=== PATIENT | male | born 2000 | race Hispanic/Latino ===

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

== ENCOUNTER 2022-12-11 02:35 | Emergency (ER) | payer MEDICAID ==
[~2022-12-11] VITALS: Ht 180.3 cm; Wt 63.6 kg
[2022-12-11] MEDS ORDERED: 0.9%NACL 1000ML 1,000 ML IV ONE (03:00)
[2022-12-11] MEDS ORDERED: ONDANSETRON 4MG INJ IVP ONE (03:00)
[2022-12-11 03:14] VITALS: BP 126/60
[2022-12-11 03:21] LABS: BASOPHILS % (AUTO) 0.2 % (0.0-5.0); EOSINOPHILS % (AUTO) 0.9 % (0.0-8.0); HEMATOCRIT 48.4 % (42-54); LYMPHOCYTES % (AUTO) 17.2 % (21.0-51.0); MEAN CORPUSCULAR HEMOGLOBIN 28.4 pg (27.0-33.0); MEAN CORPUSCULAR HGB CONC 32.9 g/dL (32.0-36.0); MEAN CORPUSCULAR VOLUME 86.4 fL (80-100); NEUTROPHILS % (AUTO) 75.4 % (40.0-77.0); PLATELET COUNT (AUTO) 235 K/uL (130-400); RED CELL DISTRIBUTION WIDTH 13.1 % (11.0-15.5); WHITE BLOOD COUNT (AUTO) 12.3 K/uL (4.8-10.8)
[2022-12-11 03:32] LABS: CREATININE 0.9 mg/dL (0.5-1.5); POTASSIUM 3.3 mmol/L (3.5-5.1)
[2022-12-11 03:36] LABS: ALBUMIN 4.3 g/dL (3.5-5.0); TOTAL PROTEIN, SERUM 7.4 g/dL (6.0-8.3)
[2022-12-11] MEDS ORDERED: ONDA4TAB10 PO (03:48)
== END 2022-12-11 03:54 | disposition home or self-care (01) ==
LOC: EDH 02:35
DX: R11.10 Vomiting, unspecified (principal); Z98.890 Other specified postprocedural states
CPT/HCPCS: 99283; 96374; 80053; 83690; 85025; 36415; J2405

== ENCOUNTER 2025-03-26 05:58 | Emergency (ER) | payer BC, MEDICAID ==
[~2025-03-26] VITALS: Ht 175.3 cm; Wt 76.7 kg
[~2025-03-26 05:58] MED LIST: ONDA-243 PO
[2025-03-26 06:49] LABS: IMMATURE GRANULOCYTE ABSOLUTE 0.00 K/uL (0-1); NUCLEATED RED BLOOD CELLS 0.0 % (0.0-0.19); PLATELET COUNT (AUTO) 451 K/uL (130-400); RED BLOOD CELL COUNT(AUTO) 5.35 MIL/uL (4.50-6.20); RED CELL DISTRIBUTION WIDTH 14.1 % (11.0-15.5); WHITE BLOOD COUNT (AUTO) 6.8 K/uL (4.8-10.8)
[2025-03-26 06:58] LABS: CREATININE 0.9 mg/dL (0.5-1.3); GLOMERULAR FILTR. RATE CALC 122.0 mL/min (>90); GLUCOSE,RANDOM 139.0 mg/dL (70-105); SODIUM SERUM 135.0 mmol/L (136-145); UREA NITROGEN, BLOOD 13.0 mg/dL (7-18)
[2025-03-26 07:15] LABS: APPEARANCE,URINE CLEAR (CLEAR); GLUCOSE, URINE (UA) NEGATIVE (NEGATIVE); LEUKOCYTE ESTERASE ,URINE NEGATIVE Leu/uL (NEGATIVE); NITRATE,URINE NEGATIVE (NEGATIVE); OCCULT BLOOD,URINE NEGATIVE (NEGATIVE)
[2025-03-26 07:21] LABS: ADD UA MICROSCOPIC NO
--- NOTE | 2025-03-26 07:22 | ERN ---
ED Note History of Present Illness Stated Complaint: C/O ABD PAIN ONSET THIS AM Chief Complaint: Abdominal Pain Time Seen by MD: 06:03 Dictation: This is a 25-year-old male who presented to the emergency room complaining of multiple somatic complaints including neck pain back pain and lower ribcage and upper abdominal pain. He stated that he woke up around 4:00 a.m. began experiencing these symptoms and got up to drink some water and also took some Pepto-Bismol and started burping a lot. He had some nausea. No vomitings. His last bowel movement was on Monday Temperature 97.9 pulse 86 respirations 20 blood pressure 111/67 with a pulse oximetry of 98% on room air Allergies: Coded Allergies: No Known Allergies (Unverified Allergy, Unknown, 03/26/25) Home Meds Active Scripts Ondansetron (Ondansetron Odt) 4 Mg Tab.rapdis, 4 MG PO Q6HPRN PRN for nausea, #8 TAB 0 Refills Prov:ALEJANDRO CROSS MD 12/11/22 Past Medical History Past Medical History: No Pertinent History, Other Additional Past Medical Hx: HEARING LOSS Surgical History: None Surgical History Other: NASAL SURGERY Family History: Negative Social History: Negative RN Note Reviewed/Agreed w/PFSH: Yes Review of System Dictation Constitutional: Negative for fever,chills, and weight loss Eyes: Negative for injury, pain,redness, and discharge ENT: Negative for injury,pain or swelling Cardiovascular: Negative for chest pain, palpitations, and edema Respiratory: Negative for shortness of breath, cough, and wheezing, Abdomen/GI: Positive for upper abdominal pain, nausea, and constipation denied vomiting, diarrhea, Back: Negative for injury and pain : Negative for injury, bleeding and discharge MS/Extremity: Negative for injury and deformity positive for neck and lower back pain Skin: Negative for rash, and discoloration Neuro: Negative for headache, weakness, numbness, tingling, and seizure Psych: Negative for suicide ideation, homicidal ideation, and hallucinations Initial Vital Sign VS Vital Signs Date Time Temp Pulse Resp B/P (MAP) Pulse Ox O2 Delivery O2 Flow Rate FiO2 03/26/25 06:00 97.9 86 20 111/67 97 Room Air Physical Exam Dictation General: awake, alert, NAD generally anxious Head/Face: Normocephalic, atraumatic Eyes: PERRL, EOMI, vision at baseline ENT: oral cavity clear, TMs clear, no signs of infection, poor dentition Neck: Trachea midline, supple, no nuchal rigidity Cardiovascular: RRR, normal S1/S2, No MRGs, no JVD Respiratory: CTAB, no respiratory distress, No rales or wheezes Abdomen: Soft, non-tender, non-distended, normal bowel sounds, no guarding or rebound. Skin: Warm, dry, normal turgor, no rash MS/Extremity: Pulses equal, no cyanosis, neurovascular intact, FROM Neuro: COAx4, GCS 15, strength 5/5, CN 2-12 intact, normal cerebellar exam, normal gait, Psych: Normal behavior, mood, and affect normal Extremities-trace edema without any palpable cords, Homans sign is negative Results (Laboratory/Radiology) Laboratory/Radiology Laboratory Tests Test 03/26/25 06:40 03/26/25 06:41 White Blood Count 6.8 K/uL (4.8-10.8) Red Blood Count 5.35 MIL/uL (4.50-6.20) Hemoglobin 16.2 g/dL (14.0-18.0) Hematocrit 46.7 % (42-54) Mean Corpuscular Volume 87.3 fL (79-99) Mean Corpuscular Hemoglobin 30.3 pg (27.0-33.0) Mean Corpuscular Hemoglobin Concent 34.7 g/dL (32.0-36.0) Red Cell Distribution Width 14.1 % (11.0-15.5) Platelet Count 451 K/uL (130-400) H Mean Platelet Volume 9.2 fL (7.5-10.5) Immature Granulocyte % (Auto) 0.0 % (0-1) Neutrophils (%) (Auto) 24.7 % (40.0-77.0) L Lymphocytes (%) (Auto) 66.4 % (21.0-51.0) H Monocytes (%) (Auto) 7.0 % (3.0-13.0) Eosinophils (%) (Auto) 0.6 % (0.0-8.0) Basophils (%) (Auto) 1.3 % (0.0-5.0) Neutrophils # (Auto) 1.7 K/uL (1.8-7.7) L Lymphocytes # (Auto) 4.5 K/uL (1.0-4.8) Monocytes # (Auto) 0.5 K/uL (0.1-1.0) Eosinophils # (Auto) 0.04 K/uL (0.00-0.70) Basophils # (Auto) 0.09 K/uL (0.00-0.20) Absolute Immature Granulocyte (auto 0.00 K/uL (0-1) Nucleated Red Blood Cells 0.0 % (0.0-0.19) Sodium Level 135 mmol/L (136-145) L Potassium Level 3.3 mmol/L (3.5-5.1) L Chloride Level 96 mmol/L (101-111) L Carbon Dioxide Level 22 mmol/L (21-32) Blood Urea Nitrogen 13 mg/dL (7-18) Creatinine 0.9 mg/dL (0.5-1.3) Glomerular Filtration Rate Calc 122 mL/min (>90) Random Glucose 139 mg/dL (70-105) H Total Calcium 8.0 mg/dL (8.5-10.1) L Lipase 47 U/L (16-77) Urine Color LIGHT-YELLOW (YELLOW) Urine Appearance CLEAR (CLEAR) Urine pH 5.5 (5.0-8.0) Urine Specific [place] 1.020 (1.001-1.031) Urine Protein NEGATIVE mg/dL (NEGATIVE) Urine Glucose (UA) NEGATIVE mg/dL (NEGATIVE) Urine Ketones NEGATIVE mg/dL (NEGATIVE) Urine Occult Blood NEGATIVE (NEGATIVE) Urine Nitrate NEGATIVE (NEGATIVE) Urine Bilirubin NEGATIVE mg/dL (NEGATIVE) Urine Urobilinogen 0.2 mg/dL (0.2-1.0) Urine Leukocyte Esterase NEGATIVE Curtis/uL Labs Reviewed?: Yes ED Course ED Course Orders Procedure Category Date Status Time Cbc With Differential LAB 03/26/25 In Process 06:05 Urinalysis Profile LAB 03/26/25 In Process 06:05 Lipase LAB 03/26/25 Complete 06:05 Basic Metabolic Panel LAB 03/26/25 Complete 06:05 Vital Signs Date Time Temp Pulse Resp B/P (MAP) Pulse Ox O2 Delivery O2 Flow Rate FiO2 03/26/25 06:00 97.9 86 20 111/67 97 Room Air We will perform diagnostic labs, advanced imaging and administer medications according to the patient's complaint. Once the results are available, will review and personally interpreted the labs to rule out any acute life- threatening emergency the trach require immediate intervention and treatment. I will then re-evaluate the patient after treatment and diagnostic exams have return to determine whether the patient requires any further testing, can safely be discharged home or need further admission to hospital for additional treatment and evaluation. Medical Decision Making MDM Differential diagnosis: Acid reflux, gastritis, esophagitis, constipation This is a 25-year-old male who presented to the emergency room complaining of multiple somatic complaints including neck pain back pain and lower ribcage and upper abdominal pain. He stated that he woke up around 4:00 a.m. began experiencing these symptoms and got up to drink some water and also took some Pepto-Bismol and started burping a lot. He had some nausea. No vomitings. His last bowel movement was on Monday Temperature 97.9 pulse 86 respirations 20 blood pressure 111/67 with a pulse oximetry of 98% on room air Overall the exam is quite benign may simply be acid reflux or perhaps just constipation. The neck pain in the back pain could be posture related or musculoskeletal. Trial of PPI and Toradol discharge to follow up with his primary care physician Rationale: Tests considered and ordered secondary to shared decision making include: Previous outside records reviewed: Old ER visits. Risk of complication and/or morbidity or mortality of patient management: None Medications-Per medication reconciliation Need for hospitalization: Patient does not meet criteria for hospitalization. Need for emergency major/minor surgery: No There are no social concerns with this patient. Prescription drug management Prescriptions will include symptomatic care Patient's prior external medical records from other ER visits were reviewed by me as indicated. Prior testing and results from previous visits were reviewed. Prior tests were taken into account with medical decision making and resource utilization, independent historian/historians were used to obtain complete medical history. I independently interpreted the test that were performed, results were reviewed by me and considered findings on radiology if ordered. Medical management and examination interpretation discussions were had by me with other qualified healthcare professionals as indicated for the patient's care. Problem List Problem List: (1) Gastritis (2) Lower back pain (3) Upper abdominal pain (4) Musculoskeletal neck pain DX & DISP Disposition: Discharge Departure Impression: Primary Impression: Musculoskeletal neck pain Additional Impressions: Upper abdominal pain, Lower back pain, Gastritis Condition: Stable Additional Instructions: Patient and the caregiver have been informed of all the diagnostic tests and the imaging conducted during the today's visit to the emergency room and has verbalized understanding of the results I have personally reviewed and interpreted all diagnostic exams performed here in the ER today as well as the vital signs documented by the nursing staff. The patient is now being discharged to home and should follow up with the primary care physician or the specialist as directed by the ER staff. Follow-up with primary care provider in 1 to 2 days. Take medications as directed here in the emergency room. Okay to continue home medications unless otherwise discussed during your visit in the emergency room today. Return to your nearest emergency room if symptoms worsen or if there is no improvement. Call 911 if you need immediate assistance. Take Tylenol or Motrin [id number] as needed and if no contraindications are present. Increase oral hydration. A wound culture or urine culture was ordered here in the emergency room department please follow-up with primary care provider and advise them to get repeat ports from our facility. If you had any Harjinder wrap/splints that were applied here, please do not remove them until you see your primary care or specialty. Referrals: POOJA CALLES MD (PCP) DEBBIE AVITIA MD Mar 26, 2025 07:22
[2025-03-26 07:54] VITALS: BP 122/75; PULSE 82; RESP 20; TEMP 98.6; O2SAT 99
== END 2025-03-26 08:04 | disposition home or self-care (01) ==
LOC: EDH 05:58
DX: M54.2 Cervicalgia (principal); R10.10 Upper abdominal pain, unspecified; M54.50 Low back pain, unspecified; K29.70 Gastritis, unspecified, without bleeding
CPT/HCPCS: 99284; 96374; 80048; 83690; 85025; 81003; 36415; J1885